=== PATIENT | female | born 1940 | race Caucasian/White ===

== ENCOUNTER 2017-06-28 08:00 | Emergency (ER) | payer MEDICARE ==
[2017-06-28] MEDS ORDERED: Ondansetron ODT 4 MG TAB ONE (08:13)
[2017-06-28 08:55] LABS: #Basophils 0.1 thou/uL (0.0-0.2); #Lymphocytes 0.5 thou/uL (1.20-3.40); #Monocytes 0.4 thou/uL (0.11-0.59); #Neutrophils 9.2 thou/uL (1.40-6.50); %Basophils 1.3 % (0.0-1.0); %Eosinophils 0.3 % (0.0-10.0); %Lymphocytes 4.4 % (21.0-51.0); %Monocytes 3.6 % (0.0-10.0); %Neutrophils 90.3 % (42.0-75.0); Hemoglobin 14.5 g/dL (12.0-16.0); Mean Corpuscular HGB CONC 32.1 g/dL (32.0-36.0); Mean Corpuscular Hemoglobin 28.2 pg (27.0-31.0); Mean Corpuscular Volume 87.8 fl (81.0-99.0); Mean Platelet Volume 6.8 fL (7.4-10.4); Platelet Count 156 thou/uL (130-400); RBC Distribution Width 12.8 % (11.5-14.5); Red Blood Cell (RBC) Count 5.13 mill/uL (4.20-5.40); White Blood Cell (WBC) Count 10.2 thou/uL (4.8-10.8)
--- NOTE | 2017-06-28 09:00 | RAD ---
2 VIEWS ABDOMEN AND SINGLE VIEW OF CHEST: Date: 06/28/17 COMPARISON: None. HISTORY: Nausea, vomiting, and diarrhea. FINDINGS: Supine and upright views of the abdomen and upright view of the chest shows a nonspecific, nonobstruc margarita bowel gas pattern. Air is seen to the level of the rectum. No free air or air fluid levels are se en on the upright examination. No suspicious calcifications are present. The heart is enlarged, but this may be exaggerated secondary to scoliotic curvature of the spine. Inc reased interstitial lung markings are present. There is no evidence of consolidation, mass, or pleura l effusion. IMPRESSION: Nonobstructed bowel gas pattern. POS: [facility]
[2017-06-28 09:02] LABS: ALT (SGPT) 37 U/L (8-55); AST (SGOT) 41 U/L (5-34); Albumin 4.1 g/dL (3.4-4.8); Alkaline Phosphatase 75 U/L (40-150); Anion Gap 18 mmol/L (10-20); BUN (Urea Nitrogen) 12 mg/dL (9.8-20.1); Bilirubin, Total 0.9 mg/dL (0.2-1.2); Calc. Creatinine Clearance 0 mL/min (70-130); Calcium 9.5 mg/dL (7.8-10.44); Carbon Dioxide 24 mmol/L (23-31); Chloride 104 mmol/L (98-107); Estimated GFR-MDRD 68; Globulin 2.8 g/dL (2.4-3.5); Glucose 134 mg/dL (83-110); Lipase 22 U/L (8-78); Potassium 3.7 mmol/L (3.5-5.1); Protein, Total 6.9 g/dL (6.0-8.3); Sodium 142 mmol/L (136-145)
[2017-06-28 09:04] LABS: Troponin I Less than 0.010 ng/mL (< 0.028)
[2017-06-28 10:08] LABS: Bilirubin Negative (Negative); Blood, Urine Moderate (Negative); Clarity Slightly Cloudy (Clear); Glucose, Urine (Dipstick) Negative (Negative); Leukocyte Large (Negative); Nitrite Negative (Negative); Protein, Urine (Dipstick) Trace mg/dL (Neg-Trace); Specific Gravity, Urine 1.015 (1.005-1.030); Urobilinogen 0.2 mg/dL (0.2-1.0); pH, Urine 8.5 (5.0-9.0)
[2017-06-28 10:17] LABS: Bacteria/HPF 3+ HPF (None Seen)
[2017-06-28] MEDS ORDERED: Sodium Chloride 0.9% 100 ML ONE (10:23)
[2017-06-28] MEDS ORDERED: cefTRIAXone\\ROCEPHIN 1 GM VIAL ONE (10:23)
[2017-06-28 12:23] LABS: Lactic Acid 2.2 mmol/L (0.5-2.2)
[2017-06-28] MEDS ORDERED: Acetaminophen 325 MG TAB ONE (12:30)
--- NOTE | 2017-07-27 18:26 | EKG ---
Test Reason : Blood Pressure : / mmHG Vent. Rate : 095 BPM Atrial Rate : 095 BPM P-R Int : 122 ms QRS Dur : 068 ms QT Int : 330 ms P-R-T Axes : 061 -01 034 degrees QTc Int : 414 ms Normal sinus rhythm Left atrial enlargement Nonspecific ST abnormality Abnormal ECG Confirmed by GISELLA SHABAZZ ([id number]), slot editor ANN-MARIE DESOUZA ([id number]) on 07/27/2017 6:26:33 PM Referred By: DR. SHABAZZ Confirmed By:GISELLA SHABAZZ
== END 2017-06-28 13:28 | disposition left against medical advice (07) ==
LOC: SCSER 08:00
DX: N39.0 Urinary tract infection, site not specified (principal); R19.7 Diarrhea, unspecified; I10 Essential (primary) hypertension; E78.5 Hyperlipidemia, unspecified; M81.0 Age-related osteoporosis without current pathological fracture; Z79.82 Long term (current) use of aspirin; Z79.899 Other long term (current) drug therapy; Z85.3 Personal history of malignant neoplasm of breast
CPT/HCPCS: 74022; 80053; 81003; 81015; 82553; 83605; 83690; 84484; 85025; 87086; 87804; 93005; 96361; 96365; J0696; J7050; Q0162

== ENCOUNTER 2017-08-02 13:23 | Outpatient (CLI) | payer MEDICARE | END 2017-08-02 13:24 | disposition home or self-care (01) | LOC: BICULT 13:23 | PROVIDERS: ATTEND Urology | DX: Z87.440 Personal history of urinary (tract) infections (principal) | CPT/HCPCS: 76770 ==

== ENCOUNTER 2022-07-11 11:57 | Day surgery (SDC) | payer MEDICARE ==
[2022-07-11 14:11] VITALS: BP 110/65; TEMP 97.6
== END 2022-07-11 14:05 | disposition home or self-care (01) ==
LOC: CT 11:57
PROVIDERS: ATTEND Internal Medicine
PROC: 079T3ZX Drainage of Bone Marrow, Percutaneous Approach, Diagnostic (ICD-10-PCS; principal; 2022-07-11)
DX: C90.00 Multiple myeloma not having achieved remission (principal); I10 Essential (primary) hypertension; E78.2 Mixed hyperlipidemia; M81.0 Age-related osteoporosis without current pathological fracture; Z85.3 Personal history of malignant neoplasm of breast; Z79.899 Other long term (current) drug therapy; Z88.2 Allergy status to sulfonamides; Z88.7 Allergy status to serum and vaccine; Z88.8 Allergy status to other drugs, medicaments and biological substances; Z91.013 Allergy to seafood
CPT/HCPCS: 20225; 77012; 85097; 88184; 88237; 88264; 88280; 88305; 88311; 88313; 88341; 88342

== ENCOUNTER 2022-09-27 14:58 | Day surgery (SDC) | payer MEDICARE | END 2022-09-27 15:34 | disposition home or self-care (01) | LOC: ONC/OP 14:58 | PROVIDERS: ATTEND Internal Medicine | DX: D46.9 Myelodysplastic syndrome, unspecified (principal); Z88.2 Allergy status to sulfonamides; Z88.7 Allergy status to serum and vaccine; Z88.8 Allergy status to other drugs, medicaments and biological substances; Z91.013 Allergy to seafood | CPT/HCPCS: 80053; 82248; 83615; 83735; 84100; 84550; 85379; 85384; 85610; 85730; 99211; G0463; J1642 ==

== ENCOUNTER 2022-12-24 01:44 | Observation (INO) | payer MEDICARE ==
[2022-12-24 03:40] LABS: Hemoglobin 10.8 g/dL (12.0-16.0); Mean Corpuscular HGB CONC 33.2 g/dL (32.0-36.0); Mean Corpuscular Volume 87.1 fl (78.0-98.0); Mean Platelet Volume 10.1 fL (7.4-10.4); Platelet Count 287 10x3/uL (130-400); RBC Distribution Width 17.9 % (11.5-14.5); Red Blood Cell (RBC) Count 3.73 mill/uL (4.20-5.40); White Blood Cell (WBC) Count 1.8 10x3/uL (4.8-10.8)
[2022-12-24 03:44] LABS: Delete Auto Diff?? YES; Manual Diff?? YES
[2022-12-24 04:01] LABS: ALT (SGPT) 20 U/L (8-55); AST (SGOT) 34 U/L (5-34); Albumin 3.2 g/dL (3.4-4.8); Alkaline Phosphatase 109 U/L (40-110); Anion Gap 15 mmol/L (10-20); BUN (Urea Nitrogen) 13 mg/dL (9.8-20.1); Bilirubin, Total 0.5 mg/dL (0.2-1.2); Calc. Creatinine Clearance 0 mL/min (70-130); Calcium 8.7 mg/dL (7.8-10.44); Carbon Dioxide 27 mmol/L (23-31); Chloride 99 mmol/L (98-107); Estimated GFR 72; Globulin 2.5 g/dL (2.4-3.5); Glucose 91 mg/dL (83-110); Magnesium 1.9 mg/dL (1.6-2.6); Potassium 3.2 mmol/L (3.5-5.1); Protein, Total 5.7 g/dL (5.8-8.1); Sodium 138 mmol/L (136-145)
[2022-12-24 04:24] LABS: Band 23 % (5-11); Giant Platelets 3.5 % (0-5); Large Platelets 26.3 % (0-5); Lymphocytes 19 % (21-51); Monocytes 12 % (0-10); Neutrophil 42 % (42-75); Platelet Adequacy Comment Platelets Normal; Polychromasia SLIGHT = 2-3 cells HPF (0-2); Total Cell Count 57
[2022-12-24 04:47] LABS: SARS-CoV-2 NAA Rapid Test Not Detected (NotDetected)
[2022-12-24 04:51] LABS: Bacteria/HPF None Seen HPF (None Seen); Bilirubin Negative (Negative); Blood, Urine Trace (Negative); CAUTI Indications for Culture Fever or rigors; Clarity Clear (Clear); Glucose, Urine (Dipstick) Normal (Negative); Ketone, Urine Negative (Negative); Leukocyte Negative Leu/uL (Negative); Nitrite Negative (Negative); Protein, Urine (Dipstick) 20 mg/dL (Neg-Trace); RBC/HPF 0-3 HPF (0-3); Specific Gravity, Urine 1.039 (1.002-1.036); Squamous Epithelial 0-3 HPF (0-3); Urobilinogen Normal mg/dL (Less than 2); WBC/HPF 0-3 HPF (0-3)
[2022-12-24 05:03] LABS: Urine Culture Reflex No No
[2022-12-24] MEDS ORDERED: Acetaminophen 325 MG TAB PO PRN (07:54)
[2022-12-24] MEDS ORDERED: Ondansetron PF 4 MG/2 ML Vial IVP PRN (07:54)
[2022-12-24] MEDS ORDERED: traMADol HCl 50 MG TAB PO PRN (08:53)
[2022-12-24] MEDS ORDERED: Mineral Oil ENEMA PR SCH (09:00)
[2022-12-24] MEDS ORDERED: POTASSIUM CHLORIDE 20 MEQ PO SCH (09:00)
[2022-12-24 09:11] VITALS: BMI 16.7
[2022-12-24] MEDS ORDERED: Potassium Bicarbonate/Cit Ac 20 MEQ TAB PO SCH (09:15)
[2022-12-24] MEDS: Sodium Chloride 0.9% 1,000 ML IV SCH ×2 (10:07→16:31)
[2022-12-24] MEDS: Potassium Chloride 20 MEQ TAB PO SCH (10:07)
[2022-12-24] MEDS: Apixaban 5 MG TAB PO SCH ×2 (10:07→21:48)
[2022-12-24] MEDS ORDERED: Iopamidol-370 76% 500 ML MDV (1 ML CHARGE) ONE (10:17)
[2022-12-24] MEDS ORDERED: Non-Formulary Item 1 EACH (Posaconazole 100 MG Tab) PO SCH (12:00)
[2022-12-24] MEDS ORDERED: valACYclovir 500 MG TAB PO SCH (18:00)
[2022-12-25] MEDS: Sodium Chloride 0.9% 1,000 ML IV SCH ×2 (00:11→08:58)
[2022-12-25 06:52] LABS: Hemoglobin 8.4 g/dL (12.0-16.0); Mean Corpuscular HGB CONC 31.8 g/dL (32.0-36.0); Mean Corpuscular Hemoglobin 29.2 pg (27.0-31.0); Mean Corpuscular Volume 91.7 fl (78.0-98.0); Mean Platelet Volume 10.5 fL (7.4-10.4); Platelet Count 237 10x3/uL (130-400); RBC Distribution Width 18.3 % (11.5-14.5); Red Blood Cell (RBC) Count 2.88 mill/uL (4.20-5.40)
[2022-12-25 07:20] LABS: Anion Gap 13 mmol/L (10-20); BUN (Urea Nitrogen) 8 mg/dL (9.8-20.1); Calc. Creatinine Clearance 47 mL/min (70-130); Calcium 7.5 mg/dL (7.8-10.44); Carbon Dioxide 22 mmol/L (23-31); Chloride 111 mmol/L (98-107); Estimated GFR 91; Glucose 84 mg/dL (83-110); Potassium 3.2 mmol/L (3.5-5.1); Sodium 143 mmol/L (136-145)
[2022-12-25 07:31] LABS: Delete Auto Diff?? YES; Manual Diff?? YES
[2022-12-25 08:08] LABS: Band 44 % (5-11); CellaVision Operator ID LAB.GE; Hypochromia SLIGHT = 6-15 cells HPF (0-5); Large Platelets 12.4 % (0-5); Lymphocytes 18 % (21-51); Metamyelocyte 1 % (0-0); Monocytes 2 % (0-10); Neutrophil 33 % (42-75); Platelet Adequacy Comment Platelets Normal; Polychromasia MODERATE = 3-4 cells HPF (0-2); Reactive Lymphocytes 2 % (0-10); Total Cell Count 105
[2022-12-25] MEDS: Apixaban 5 MG TAB PO SCH (09:43)
[2022-12-25] MEDS: Potassium Chloride 20 MEQ TAB PO SCH (09:43)
[2022-12-25] MEDS ORDERED: Lorazepam 0.5 MG TAB PO PRN (10:01)
[2022-12-25 15:07] VITALS: BP 144/78; TEMP 97.6
== END 2022-12-25 16:37 | disposition home or self-care (01) ==
LOC: ERS 01:44 → T4-B 07:45
PROVIDERS: ADMIT Internal Medicine; ATTEND Hospitalist
DX: R53.81 Other malaise (principal); E87.6 Hypokalemia; I10 Essential (primary) hypertension; D46.9 Myelodysplastic syndrome, unspecified; M41.9 Scoliosis, unspecified; K56.41 Fecal impaction; G93.41 Metabolic encephalopathy; Z79.01 Long term (current) use of anticoagulants; Z79.899 Other long term (current) drug therapy; Z88.2 Allergy status to sulfonamides; Z88.1 Allergy status to other antibiotic agents; Z91.013 Allergy to seafood; Z88.7 Allergy status to serum and vaccine; Z88.8 Allergy status to other drugs, medicaments and biological substances
CPT/HCPCS: 0240U; 71045; 74177; 80048; 80053; 81001; 83605; 83735; 84100; 85025 ×2; 93005; 96374; 97110; 97116; 97530; G0378 ×3; 51701; 96360; 96361; J2405; J7050; Q9967

== ENCOUNTER 2022-12-25 23:14 | Inpatient (IN) | payer MEDICARE ==
[2022-12-25] MEDS ORDERED: Acetaminophen 325 MG Suppository ONE (23:31)
[2022-12-26 00:06] LABS: #Monocytes 0.2 thou/uL (0.11-0.59); #Neutrophils 1.1 thou/uL (1.40-6.50); %Basophils 0.7 % (0.0-1.0); %Lymphocytes 16.8 % (21.0-51.0); %Monocytes 11.4 % (0.0-10.0); %Neutrophils 70.4 % (42.0-75.0); Hemoglobin 9.2 g/dL (12.0-16.0); Mean Corpuscular HGB CONC 32.3 g/dL (32.0-36.0); Mean Corpuscular Hemoglobin 28.5 pg (27.0-31.0); Mean Platelet Volume 10.3 fL (7.4-10.4); Platelet Count 219 10x3/uL (130-400); RBC Distribution Width 18.1 % (11.5-14.5); Red Blood Cell (RBC) Count 3.23 mill/uL (4.20-5.40); White Blood Cell (WBC) Count 1.5 10x3/uL (4.8-10.8)
[2022-12-26] MEDS ORDERED: Cefepime 2 GM VIAL ONE (00:12)
[2022-12-26] MEDS ORDERED: LORazepam 2 MG/ML SYR.(CARPUJECT) ONE (00:12)
[2022-12-26] MEDS ORDERED: Vancomycin 1 GM/200 ML (FROZEN) BAG ONE (00:12)
[2022-12-26 00:21] LABS: INR-International Normal Ratio 3.4; Prothrombin Time 35.8 sec (12.0-14.7)
[2022-12-26 00:53] LABS: Mean Corpuscular Volume 88.2 fl (78.0-98.0)
[2022-12-26 00:57] LABS: ALT (SGPT) 25 U/L (8-55); AST (SGOT) 39 U/L (5-34); Alkaline Phosphatase 134 U/L (40-110); Anion Gap 15 mmol/L (10-20); BUN (Urea Nitrogen) 10 mg/dL (9.8-20.1); Bilirubin, Total 0.7 mg/dL (0.2-1.2); Calc. Creatinine Clearance 0 mL/min (70-130); Calcium 8.4 mg/dL (7.8-10.44); Carbon Dioxide 21 mmol/L (23-31); Chloride 108 mmol/L (98-107); Estimated GFR 86; Globulin 2.5 g/dL (2.4-3.5); Glucose 104 mg/dL (83-110); Potassium 3.3 mmol/L (3.5-5.1); Protein, Total 5.5 g/dL (5.8-8.1); Sodium 141 mmol/L (136-145)
[2022-12-26 00:58] LABS: CRP (Inflammatory) 12.74 mg/dL (= or < 0.5); Lipase Less than 4 U/L (8-78); Magnesium 1.7 mg/dL (1.6-2.6)
[2022-12-26 00:58] LABS: SARS-CoV-2 NAA Rapid Test Not Detected (NotDetected)
[2022-12-26] MEDS ORDERED: Aspirin Chewable 81 MG TAB ONE (01:36)
[2022-12-26 01:40] LABS: CKMB 3.7 ng/mL (0-6.6)
[2022-12-26 03:16] LABS: Bacteria/HPF None Seen HPF (None Seen); Bilirubin Negative (Negative); Blood, Urine 1+ (Negative); CAUTI Indications for Culture Alt mental st,lethar; Clarity Turbid (Clear); Glucose, Urine (Dipstick) Normal (Negative); Ketone, Urine Negative (Negative); Leukocyte 75 Leu/uL (Negative); Nitrite Negative (Negative); Protein, Urine (Dipstick) 30 mg/dL (Neg-Trace); RBC/HPF 0-3 HPF (0-3); Specific Gravity, Urine 1.012 (1.002-1.036); Squamous Epithelial 0-3 HPF (0-3); Urobilinogen Normal mg/dL (Less than 2); pH, Urine 5.5 (5.0-9.0)
[2022-12-26] MEDS ORDERED: NOREPINEPHRINE 8 MG/250 ML-D5W 250 ML ONE (03:17)
[2022-12-26] MEDS ORDERED: Ondansetron PF 4 MG/2 ML Vial IVP PRN (03:26)
[2022-12-26] MEDS ORDERED: Magnesium 2 GM/50 ML(in water) 2 GM in Premix Bag 1 BAG IVPB SCH (03:30)
[2022-12-26] MEDS ORDERED: Potassium Bicarbonate/Cit Ac 20 MEQ TAB PO SCH (03:30)
[2022-12-26 03:31] LABS: Urine Culture Reflex Yes Yes
[2022-12-26] MEDS ORDERED: Magnesium 2 GM/50 ML BAG (IN WATER) ONE (03:43)
[2022-12-26 03:53] LABS: Troponin I 1.432 ng/mL (< 0.028)
[2022-12-26] MEDS ORDERED: Furosemide 20 MG/2 ML VIAL SLOW IVP SCH (05:45)
[2022-12-26 06:05] LABS: Hemoglobin 8.2 g/dL (12.0-16.0); Mean Corpuscular HGB CONC 31.8 g/dL (32.0-36.0); Mean Corpuscular Hemoglobin 28.8 pg (27.0-31.0); Mean Corpuscular Volume 90.5 fl (78.0-98.0); Mean Platelet Volume 11.2 fL (7.4-10.4); Platelet Count 175 10x3/uL (130-400); RBC Distribution Width 18.3 % (11.5-14.5); Red Blood Cell (RBC) Count 2.85 mill/uL (4.20-5.40); White Blood Cell (WBC) Count 5.9 10x3/uL (4.8-10.8)
[2022-12-26 06:33] LABS: Critical Call Chem Troponin I RESULT DECREASING; Troponin I 0.918 ng/mL (< 0.028)
[2022-12-26 06:41] LABS: ALT (SGPT) 22 U/L (8-55); AST (SGOT) 37 U/L (5-34); Albumin 2.7 g/dL (3.4-4.8); Alkaline Phosphatase 115 U/L (40-110); Anion Gap 13 mmol/L (10-20); BUN (Urea Nitrogen) 11 mg/dL (9.8-20.1); Bilirubin, Total 0.6 mg/dL (0.2-1.2); Calc. Creatinine Clearance 43 mL/min (70-130); Calcium 7.8 mg/dL (7.8-10.44); Carbon Dioxide 21 mmol/L (23-31); Chloride 109 mmol/L (98-107); Estimated GFR 87; Globulin 1.8 g/dL (2.4-3.5); Glucose 106 mg/dL (83-110); Magnesium 2.5 mg/dL (1.6-2.6); Potassium 3.4 mmol/L (3.5-5.1); Protein, Total 4.5 g/dL (5.8-8.1); Sodium 140 mmol/L (136-145)
[2022-12-26 06:42] LABS: Manual Diff?? YES
[2022-12-26 06:43] LABS: Delete Auto Diff?? YES
[2022-12-26 07:47] LABS: INR-International Normal Ratio 3.2; PTT 56.1 sec (22.9-36.1); Prothrombin Time 34.2 sec (12.0-14.7)
[2022-12-26] MEDS ORDERED: Famotidine 20 MG TAB PO SCH (09:00)
[2022-12-26 09:08] LABS: Band 51 % (5-11); CellaVision Operator ID LAB.GE; Giant Platelets 0.5 % (0-5); Large Platelets 6.3 % (0-5); Lymphocytes 7 % (21-51); Metamyelocyte 7 % (0-0); Monocytes 3 % (0-10); Neutrophil 29 % (42-75); Platelet Adequacy Comment Platelets Normal; Polychromasia MODERATE = 3-4 cells HPF (0-2); Reactive Lymphocytes 3 % (0-10); Smudge Cells 2.7 %; Total Cell Count 221; Toxic Granulation SLIGHT; Vacuoles SLIGHT
[2022-12-26] MEDS: Lactated Ringer's 1,000 ML IV SCH (12:09)
[2022-12-26] MEDS: POSACONAZOLE 100 MG PO SCH (12:11)
[2022-12-26] MEDS: Pantoprazole 40 MG VIAL IVP SCH (12:12)
[2022-12-26] MEDS: Cefepime 1 GM in Sodium Chloride 0.9% 100 ML IVPB SCH (14:46)
[2022-12-26] MEDS: valACYclovir 500 MG TAB PO SCH (19:37)
[2022-12-26] MEDS ORDERED: Apixaban 5 MG TAB PO SCH ×3 (21:00)
[2022-12-26] MEDS: Apixaban 2.5 MG TAB PO SCH (21:13)
[2022-12-27] MEDS: Cefepime 1 GM in Sodium Chloride 0.9% 100 ML IVPB SCH ×2 (01:43→14:20)
[2022-12-27] MEDS: Vancomycin HCl 750 MG in Sodium Chloride 0.9% 250 ML 250 ML IVPB SCH (02:38)
[2022-12-27 04:29] LABS: #Monocytes 0.5 thou/uL (0.11-0.59); #Neutrophils 5.7 thou/uL (1.40-6.50); %Basophils 0.5 % (0.0-1.0); %Eosinophils 0.3 % (0.0-10.0); %Lymphocytes 15.7 % (21.0-51.0); %Monocytes 6.2 % (0.0-10.0); Hemoglobin 9.3 g/dL (12.0-16.0); Mean Corpuscular HGB CONC 32.3 g/dL (32.0-36.0); Mean Corpuscular Hemoglobin 28.8 pg (27.0-31.0); Mean Corpuscular Volume 89.2 fl (78.0-98.0); Mean Platelet Volume 11.3 fL (7.4-10.4); Platelet Count 178 10x3/uL (130-400); RBC Distribution Width 18.1 % (11.5-14.5); Red Blood Cell (RBC) Count 3.23 mill/uL (4.20-5.40); White Blood Cell (WBC) Count 7.5 10x3/uL (4.8-10.8)
[2022-12-27 04:36] LABS: Manual Diff?? YES
[2022-12-27 04:44] LABS: INR-International Normal Ratio 2.6; PTT 54.7 sec (22.9-36.1); Prothrombin Time 29.2 sec (12.0-14.7)
[2022-12-27 04:50] LABS: ALT (SGPT) 24 U/L (8-55); AST (SGOT) 38 U/L (5-34); Albumin 2.9 g/dL (3.4-4.8); Alkaline Phosphatase 134 U/L (40-110); Anion Gap 13 mmol/L (10-20); BUN (Urea Nitrogen) 11 mg/dL (9.8-20.1); Bilirubin, Total 0.7 mg/dL (0.2-1.2); Calc. Creatinine Clearance 44 mL/min (70-130); Calcium 8.2 mg/dL (7.8-10.44); Carbon Dioxide 25 mmol/L (23-31); Chloride 107 mmol/L (98-107); Estimated GFR 87; Globulin 2.4 g/dL (2.4-3.5); Glucose 118 mg/dL (83-110); Magnesium 1.9 mg/dL (1.6-2.6); Potassium 2.7 mmol/L (3.5-5.1); Protein, Total 5.3 g/dL (5.8-8.1); Sodium 142 mmol/L (136-145)
[2022-12-27 05:10] LABS: Band 24 % (5-11); Eosinophils 1 % (0-10); Large Platelets 1.9 % (0-5); Lymphocytes 12 % (21-51); Metamyelocyte 1 % (0-0); Monocytes 4 % (0-10); Neutrophil 58 % (42-75); Platelet Adequacy Comment Platelets Normal; Total Cell Count 103
[2022-12-27] MEDS: Lactated Ringer's 1,000 ML IV SCH (07:42)
[2022-12-27] MEDS: Apixaban 2.5 MG TAB PO SCH ×3 (08:31→20:22)
[2022-12-27] MEDS: Pantoprazole 40 MG VIAL IVP SCH (08:31)
[2022-12-27] MEDS: Famotidine 20 MG TAB PO SCH ×2 (08:31→08:43)
[2022-12-27] MEDS: POSACONAZOLE 100 MG PO SCH ×2 (08:31→08:44)
[2022-12-27] MEDS ORDERED: Non-Formulary Item 1 EACH (Posaconazole 100 MG Tab) PO SCH (12:00)
[2022-12-27] MEDS: valACYclovir 500 MG TAB PO SCH (18:03)
[2022-12-27] MEDS: Acetaminophen 325 MG TAB PO PRN (20:22)
[2022-12-28] MEDS: Cefepime 1 GM in Sodium Chloride 0.9% 100 ML IVPB SCH ×2 (01:41→15:28)
[2022-12-28 02:03] LABS: Vancomycin, Trough 6.6 ug/mL
[2022-12-28] MEDS: Vancomycin HCl 750 MG in Sodium Chloride 0.9% 250 ML 250 ML IVPB SCH ×3 (02:31→17:13)
[2022-12-28] MEDS: Lactated Ringer's 1,000 ML IV SCH (02:37)
[2022-12-28 04:44] LABS: Hemoglobin 8.4 g/dL (12.0-16.0); Mean Corpuscular HGB CONC 32.8 g/dL (32.0-36.0); Mean Corpuscular Hemoglobin 28.7 pg (27.0-31.0); Mean Corpuscular Volume 87.4 fl (78.0-98.0); Mean Platelet Volume 12.1 fL (7.4-10.4); Platelet Count 122 10x3/uL (130-400); RBC Distribution Width 18.5 % (11.5-14.5); Red Blood Cell (RBC) Count 2.93 mill/uL (4.20-5.40); White Blood Cell (WBC) Count 3.8 10x3/uL (4.8-10.8)
[2022-12-28 04:46] LABS: Delete Auto Diff?? YES; Manual Diff?? YES
[2022-12-28 04:57] LABS: INR-International Normal Ratio 1.9; Prothrombin Time 22.7 sec (12.0-14.7)
[2022-12-28 04:59] LABS: PTT 45.3 sec (22.9-36.1)
[2022-12-28 05:07] LABS: ALT (SGPT) 19 U/L (8-55); AST (SGOT) 20 U/L (5-34); Albumin 2.3 g/dL (3.4-4.8); Alkaline Phosphatase 109 U/L (40-110); Anion Gap 10 mmol/L (10-20); BUN (Urea Nitrogen) 10 mg/dL (9.8-20.1); Bilirubin, Total 0.5 mg/dL (0.2-1.2); Calc. Creatinine Clearance 49 mL/min (70-130); Calcium 7.8 mg/dL (7.8-10.44); Carbon Dioxide 27 mmol/L (23-31); Chloride 108 mmol/L (98-107); Estimated GFR 88; Globulin 2.1 g/dL (2.4-3.5); Glucose 111 mg/dL (83-110); Magnesium 1.9 mg/dL (1.6-2.6); Protein, Total 4.4 g/dL (5.8-8.1); Sodium 142 mmol/L (136-145)
[2022-12-28 05:14] VITALS: BMI 22.8
[2022-12-28 05:23] LABS: Anisocytosis SLIGHT = 6-15 cells HPF (0-5); Band 12 % (5-11); CellaVision Operator ID lab.abc; Eosinophils 2 % (0-10); Large Platelets 7.8 % (0-5); Lymphocytes 22 % (21-51); Monocytes 10 % (0-10); Neutrophil 55 % (42-75); Platelet Adequacy Comment Platelets Decreased; Polychromasia SLIGHT = 2-3 cells HPF (0-2); Smudge Cells 25.5 %; Total Cell Count 102
[2022-12-28 07:11] LABS: Potassium 2.6 mmol/L (3.5-5.1)
[2022-12-28] MEDS ORDERED: Magnesium 2 GM/50 ML(in water) 2 GM in Premix Bag 1 BAG IVPB SCH (07:30)
[2022-12-28] MEDS: Pantoprazole 40 MG VIAL IVP SCH (09:08)
[2022-12-28] MEDS: Apixaban 2.5 MG TAB PO SCH ×2 (09:09→21:38)
[2022-12-28] MEDS: Famotidine 20 MG TAB PO SCH (09:09)
[2022-12-28] MEDS: POSACONAZOLE 100 MG PO SCH (09:09)
[2022-12-28] MEDS: Potassium Bicarbonate/Cit Ac 20 MEQ TAB PO SCH ×2 (09:09→12:52)
[2022-12-28] MEDS ORDERED: Guaifenesin DM 100-10/5 ML UDCUP PO PRN (11:26)
[2022-12-28] MEDS ORDERED: Vancomycin HCl 500 MG in Sodium Chloride 0.9% 100 ML IVPB SCH (14:00)
[2022-12-28] MEDS: Benzonatate 100 MG CAP PO SCH ×2 (15:28→21:40)
[2022-12-28] MEDS: valACYclovir 500 MG TAB PO SCH (17:09)
[2022-12-28] MEDS: Melatonin 3 MG TAB PO PRN (21:42)
[2022-12-29] MEDS: Cefepime 1 GM in Sodium Chloride 0.9% 100 ML IVPB SCH ×2 (02:11→13:13)
[2022-12-29] MEDS ORDERED: Nitroglycerin 0.4 MG TAB (25 Tab Bottle) ONE (03:43)
[2022-12-29] MEDS: Vancomycin HCl 750 MG in Sodium Chloride 0.9% 250 ML 250 ML IVPB SCH ×2 (03:53→16:09)
[2022-12-29 04:31] LABS: Hemoglobin 8.9 g/dL (12.0-16.0); Mean Corpuscular HGB CONC 33.1 g/dL (32.0-36.0); Mean Corpuscular Hemoglobin 28.6 pg (27.0-31.0); Mean Corpuscular Volume 86.5 fl (78.0-98.0); Mean Platelet Volume 11.6 fL (7.4-10.4); Platelet Count 112 10x3/uL (130-400); RBC Distribution Width 18.6 % (11.5-14.5); Red Blood Cell (RBC) Count 3.11 mill/uL (4.20-5.40); White Blood Cell (WBC) Count 3.6 10x3/uL (4.8-10.8)
[2022-12-29 04:49] LABS: Anion Gap 10 mmol/L (10-20); BUN (Urea Nitrogen) 8 mg/dL (9.8-20.1); CRP (Inflammatory) 6.72 mg/dL (= or < 0.5); Calc. Creatinine Clearance 56 mL/min (70-130); Carbon Dioxide 29 mmol/L (23-31); Chloride 109 mmol/L (98-107); Estimated GFR 90; Glucose 102 mg/dL (83-110); Potassium 2.9 mmol/L (3.5-5.1); Sodium 145 mmol/L (136-145)
[2022-12-29 05:37] LABS: Delete Auto Diff?? YES; Manual Diff?? YES
[2022-12-29 06:29] LABS: Anisocytosis SLIGHT = 6-15 cells HPF (0-5); Band 14 % (5-11); CellaVision Operator ID LAB.JMM; Eosinophils 2 % (0-10); Hypochromia SLIGHT = 6-15 cells HPF (0-5); Large Platelets 8.8 % (0-5); Lymphocytes 21 % (21-51); Monocytes 9 % (0-10); Myelocyte 1 % (0-0); Neutrophil 54 % (42-75); Platelet Adequacy Comment Platelets Decreased; Polychromasia SLIGHT = 2-3 cells HPF (0-2); Smudge Cells 13.7 %; Total Cell Count 102
[2022-12-29] MEDS ORDERED: Electrolyte Replacement Protocol 1 EACH FS SCH (07:45)
[2022-12-29] MEDS ORDERED: Potassium Chloride 20 MEQ TAB PO SCH (07:45)
[2022-12-29] MEDS ORDERED: Potassium Chloride 40 MEQ in Premix Bag 1 BAG IVPB SCH (08:00)
[2022-12-29] MEDS: POSACONAZOLE 100 MG PO SCH (08:46)
[2022-12-29] MEDS: Benzonatate 100 MG CAP PO SCH ×3 (08:47→20:43)
[2022-12-29] MEDS: Pantoprazole 40 MG VIAL IVP SCH (08:47)
[2022-12-29] MEDS: Famotidine 20 MG TAB PO SCH (08:48)
[2022-12-29] MEDS: Apixaban 2.5 MG TAB PO SCH ×2 (08:48→20:43)
[2022-12-29] MEDS ORDERED: D5W-AA 4.25% with LYTES 1,000 ML IV SCH (11:00)
[2022-12-29] MEDS ORDERED: Sterile Water 10 ML VIAL IVP SCH (12:15)
[2022-12-29] MEDS ORDERED: Activase 2 MG VIAL CATH SCH (12:15)
[2022-12-29 15:10] LABS: Potassium 4.9 mmol/L (3.5-5.1)
[2022-12-29] MEDS: valACYclovir 500 MG TAB PO SCH (17:25)
[2022-12-29] MEDS ORDERED: Furosemide 40 MG/4 ML VIAL SLOW IVP SCH (18:30)
[2022-12-29] MEDS: Mirtazapine 15 MG TAB PO SCH (20:43)
[2022-12-30] MEDS: Cefepime 1 GM in Sodium Chloride 0.9% 100 ML IVPB SCH ×2 (02:28→14:22)
[2022-12-30] MEDS: Vancomycin HCl 750 MG in Sodium Chloride 0.9% 250 ML 250 ML IVPB SCH ×2 (03:37→15:23)
[2022-12-30 06:52] LABS: Anion Gap 14 mmol/L (10-20); BUN (Urea Nitrogen) 9 mg/dL (9.8-20.1); Calc. Creatinine Clearance 58 mL/min (70-130); Calcium 8.2 mg/dL (7.8-10.44); Carbon Dioxide 30 mmol/L (23-31); Chloride 103 mmol/L (98-107); Estimated GFR 91; Glucose 98 mg/dL (83-110); Magnesium 1.8 mg/dL (1.6-2.6); Sodium 144 mmol/L (136-145)
[2022-12-30 07:06] LABS: Potassium 2.6 mmol/L (3.5-5.1)
[2022-12-30] MEDS ORDERED: Potassium Chloride 20 MEQ TAB PO SCH ×2 (08:00→21:45)
[2022-12-30] MEDS ORDERED: Magnesium 2 GM/50 ML(in water) 2 GM in Premix Bag 1 BAG IVPB SCH (08:00)
[2022-12-30] MEDS: Benzonatate 100 MG CAP PO SCH ×3 (09:47→20:16)
[2022-12-30] MEDS: Pantoprazole 40 MG VIAL IVP SCH (09:47)
[2022-12-30] MEDS: Apixaban 2.5 MG TAB PO SCH ×2 (09:47→20:16)
[2022-12-30] MEDS: Famotidine 20 MG TAB PO SCH ×2 (09:47→10:13)
[2022-12-30] MEDS: POSACONAZOLE 100 MG PO SCH (09:48)
[2022-12-30] MEDS ORDERED: Furosemide 40 MG/4 ML VIAL SLOW IVP SCH (10:45)
[2022-12-30] MEDS ORDERED: Ipratropium/Albuterol 3 ML NEB NEB SCH (10:45)
[2022-12-30] MEDS: Albumin 25% 25 GM/100 ML BOT IVPB SCH ×3 (11:56→22:43)
[2022-12-30] MEDS: Potassium Chloride 40 MEQ in Premix Bag 1 BAG IVPB SCH ×2 (11:56→15:23)
[2022-12-30] MEDS: Acetylcysteine 20% 200 MG/ML 30 ML VIAL INH SCH ×2 (13:45→19:38)
[2022-12-30] MEDS: Ipratropium/Albuterol 3 ML NEB NEB SCH ×2 (13:45→19:20)
[2022-12-30] MEDS: valACYclovir 500 MG TAB PO SCH (17:59)
[2022-12-30] MEDS: Mirtazapine 15 MG TAB PO SCH (20:15)
[2022-12-30] MEDS: Acetaminophen 325 MG TAB PO PRN (22:39)
[2022-12-31] MEDS: Acetylcysteine 20% 200 MG/ML 30 ML VIAL INH SCH ×2 (00:45→07:27)
[2022-12-31] MEDS: Ipratropium/Albuterol 3 ML NEB NEB SCH ×4 (00:45→19:28)
[2022-12-31] MEDS: Cefepime 1 GM in Sodium Chloride 0.9% 100 ML IVPB SCH ×2 (01:04→16:13)
[2022-12-31] MEDS: Vancomycin HCl 750 MG in Sodium Chloride 0.9% 250 ML 250 ML IVPB SCH ×3 (03:56→23:57)
[2022-12-31 04:03] LABS: Hemoglobin 6.9 g/dL (12.0-16.0); Mean Corpuscular HGB CONC 31.8 g/dL (32.0-36.0); Mean Corpuscular Volume 88.2 fl (78.0-98.0); Mean Platelet Volume 12.6 fL (7.4-10.4); Platelet Count 105 10x3/uL (130-400); RBC Distribution Width 18.2 % (11.5-14.5); Red Blood Cell (RBC) Count 2.46 mill/uL (4.20-5.40)
[2022-12-31 04:28] LABS: ALT (SGPT) 12 U/L (8-55); AST (SGOT) 15 U/L (5-34); Albumin 3.4 g/dL (3.4-4.8); Alkaline Phosphatase 86 U/L (40-110); Anion Gap 14 mmol/L (10-20); BUN (Urea Nitrogen) 11 mg/dL (9.8-20.1); Bilirubin, Total 0.5 mg/dL (0.2-1.2); Calc. Creatinine Clearance 55 mL/min (70-130); Calcium 8.8 mg/dL (7.8-10.44); Carbon Dioxide 31 mmol/L (23-31); Chloride 104 mmol/L (98-107); Estimated GFR 90; Globulin 1.7 g/dL (2.4-3.5); Glucose 92 mg/dL (83-110); Magnesium 2.1 mg/dL (1.6-2.6); Potassium 3.3 mmol/L (3.5-5.1); Protein, Total 5.1 g/dL (5.8-8.1); Sodium 146 mmol/L (136-145)
[2022-12-31 04:52] LABS: Delete Auto Diff?? YES; Manual Diff?? YES
[2022-12-31] MEDS: Albumin 25% 25 GM/100 ML BOT IVPB SCH (05:08)
[2022-12-31 06:40] LABS: Hemoglobin 6.9 g/dL (12.0-16.0); Mean Corpuscular HGB CONC 32.1 g/dL (32.0-36.0); Mean Corpuscular Volume 87.4 fl (78.0-98.0); Mean Platelet Volume 12.1 fL (7.4-10.4); Platelet Count 107 10x3/uL (130-400); RBC Distribution Width 18.2 % (11.5-14.5); Red Blood Cell (RBC) Count 2.46 mill/uL (4.20-5.40); White Blood Cell (WBC) Count 3.6 10x3/uL (4.8-10.8)
[2022-12-31 06:57] LABS: Delete Auto Diff?? YES; Manual Diff?? YES
[2022-12-31 07:19] LABS: Band 11 % (5-11); CellaVision Operator ID LAB.GE; Eosinophils 3 % (0-10); Hypochromia SLIGHT = 6-15 cells HPF (0-5); Large Platelets 8.6 % (0-5); Lymphocytes 28 % (21-51); Monocytes 8 % (0-10); Neutrophil 48 % (42-75); Platelet Adequacy Comment Platelets Decreased; Polychromasia SLIGHT = 2-3 cells HPF (0-2); Reactive Lymphocytes 1 % (0-10); Smudge Cells 9.5 %; Total Cell Count 105
[2022-12-31 07:25] LABS: Band 18 % (5-11); CellaVision Operator ID LAB.GE; Eosinophils 3 % (0-10); Large Platelets 6.9 % (0-5); Lymphocytes 27 % (21-51); Monocytes 12 % (0-10); Myelocyte 2 % (0-0); Neutrophil 37 % (42-75); Platelet Adequacy Comment Platelets Decreased; Polychromasia SLIGHT = 2-3 cells HPF (0-2); Reactive Lymphocytes 2 % (0-10); Total Cell Count 102
[2022-12-31] MEDS ORDERED: Potassium Chloride 40 MEQ in Premix Bag 1 BAG IVPB SCH ×2 (08:00→15:45)
[2022-12-31] MEDS: Benzonatate 100 MG CAP PO SCH ×3 (11:06→21:47)
[2022-12-31] MEDS: Famotidine 20 MG TAB PO SCH (11:06)
[2022-12-31] MEDS: Furosemide 40 MG/4 ML VIAL SLOW IVP SCH (11:07)
[2022-12-31] MEDS: Pantoprazole 40 MG VIAL IVP SCH (11:07)
[2022-12-31] MEDS: POSACONAZOLE 100 MG PO SCH (11:13)
[2022-12-31] MEDS ORDERED: Furosemide 20 MG/2 ML VIAL SLOW IVP SCH (15:00)
[2022-12-31] MEDS ORDERED: Apixaban 2.5 MG TAB PO SCH (21:00)
[2022-12-31] MEDS: valACYclovir 500 MG TAB PO SCH (21:47)
[2022-12-31] MEDS: Mirtazapine 15 MG TAB PO SCH (21:47)
[2022-12-31 21:53] LABS: Potassium 3.6 mmol/L (3.5-5.1)
[2022-12-31 22:16] LABS: Vancomycin, Random 11.9 ug/mL (See Comment)
[2023-01-01] MEDS: Ipratropium/Albuterol 3 ML NEB NEB SCH ×4 (00:21→19:12)
[2023-01-01] MEDS ORDERED: Nystatin 100,000 Units/mL UDCUP SSW SCH (00:30)
[2023-01-01] MEDS: Cefepime 1 GM in Sodium Chloride 0.9% 100 ML IVPB SCH ×2 (02:15→13:30)
[2023-01-01 05:21] LABS: Hemoglobin 9.4 g/dL (12.0-16.0); Mean Corpuscular HGB CONC 33.1 g/dL (32.0-36.0); Mean Corpuscular Hemoglobin 28.7 pg (27.0-31.0); Mean Corpuscular Volume 86.9 fl (78.0-98.0); Mean Platelet Volume 12.7 fL (7.4-10.4); Platelet Count 159 10x3/uL (130-400); RBC Distribution Width 17.1 % (11.5-14.5); Red Blood Cell (RBC) Count 3.27 mill/uL (4.20-5.40); White Blood Cell (WBC) Count 5.2 10x3/uL (4.8-10.8)
[2023-01-01 05:27] LABS: Delete Auto Diff?? YES; Manual Diff?? YES
[2023-01-01 05:52] LABS: ALT (SGPT) 12 U/L (8-55); AST (SGOT) 20 U/L (5-34); Albumin 3.5 g/dL (3.4-4.8); Alkaline Phosphatase 82 U/L (40-110); Anion Gap 12 mmol/L (10-20); BUN (Urea Nitrogen) 7 mg/dL (9.8-20.1); Bilirubin, Total 0.8 mg/dL (0.2-1.2); Calc. Creatinine Clearance 59 mL/min (70-130); Calcium 9.2 mg/dL (7.8-10.44); Carbon Dioxide 36 mmol/L (23-31); Chloride 104 mmol/L (98-107); Estimated GFR 92; Globulin 1.9 g/dL (2.4-3.5); Glucose 103 mg/dL (83-110); Protein, Total 5.4 g/dL (5.8-8.1); Sodium 149 mmol/L (136-145)
[2023-01-01 05:56] LABS: Potassium 2.6 mmol/L (3.5-5.1)
[2023-01-01 05:58] LABS: Band 11 % (5-11); CellaVision Operator ID LAB.GE; Eosinophils 7 % (0-10); Large Platelets 0.8 % (0-5); Lymphocytes 6 % (21-51); Monocytes 5 % (0-10); Neutrophil 53 % (42-75); Plasma Cells 0.8 % (0-0); Platelet Adequacy Comment Platelets Normal; Polychromasia SLIGHT = 2-3 cells HPF (0-2); Reactive Lymphocytes 17 % (0-10); Smudge Cells 0.8 %; Total Cell Count 131
[2023-01-01] MEDS: Potassium Chloride 20 MEQ in Premix Bag 1 BAG IVPB SCH ×6 (07:23→17:38)
[2023-01-01] MEDS ORDERED: Potassium Chloride 20 MEQ TAB PO SCH (08:00)
[2023-01-01] MEDS: Famotidine 20 MG TAB PO SCH (08:07)
[2023-01-01] MEDS: Furosemide 40 MG/4 ML VIAL SLOW IVP SCH (08:07)
[2023-01-01] MEDS: Benzonatate 100 MG CAP PO SCH ×4 (08:07→22:14)
[2023-01-01] MEDS: Pantoprazole 40 MG VIAL IVP SCH (08:08)
[2023-01-01] MEDS: POSACONAZOLE 100 MG PO SCH (08:08)
[2023-01-01] MEDS: Nystatin 100,000 Units/mL UDCUP SSW SCH ×2 (08:09→08:11)
[2023-01-01] MEDS ORDERED: hydrALAZINE 20 MG/ML VIAL SLOW IVP PRN (08:26)
[2023-01-01] MEDS: Vancomycin HCl 750 MG in Sodium Chloride 0.9% 250 ML 250 ML IVPB SCH ×2 (11:55→22:48)
[2023-01-01] MEDS: Nystatin 500,000 UNITS/5 ML UDCUP SSW SCH ×4 (13:30→22:14)
[2023-01-01 14:35] LABS: Potassium 2.9 mmol/L (3.5-5.1)
[2023-01-01] MEDS: valACYclovir 500 MG TAB PO SCH (16:51)
[2023-01-01] MEDS ORDERED: Potassium Chloride 40 MEQ in Premix Bag 1 BAG IVPB SCH (21:00)
[2023-01-01] MEDS: Mirtazapine 15 MG TAB PO SCH ×2 (22:14)
[2023-01-01 23:05] LABS: Potassium 3.9 mmol/L (3.5-5.1)
[2023-01-02] MEDS: Ipratropium/Albuterol 3 ML NEB NEB SCH ×4 (00:28→19:23)
[2023-01-02] MEDS: LevoFLOXacin 750 MG TAB PO SCH (05:55)
[2023-01-02] MEDS: Famotidine 20 MG TAB PO SCH ×2 (08:56→08:57)
[2023-01-02] MEDS: Pantoprazole 40 MG VIAL IVP SCH (08:56)
[2023-01-02] MEDS: Nystatin 500,000 UNITS/5 ML UDCUP SSW SCH ×4 (08:57→20:55)
[2023-01-02] MEDS: Benzonatate 100 MG CAP PO SCH ×3 (08:57→20:55)
[2023-01-02 11:45] LABS: Hemoglobin 10.2 g/dL (12.0-16.0); Mean Corpuscular HGB CONC 32.4 g/dL (32.0-36.0); Mean Corpuscular Hemoglobin 29.1 pg (27.0-31.0); Mean Platelet Volume 12.3 fL (7.4-10.4); Platelet Count 190 10x3/uL (130-400); RBC Distribution Width 17.5 % (11.5-14.5); White Blood Cell (WBC) Count 6.7 10x3/uL (4.8-10.8)
[2023-01-02 11:55] LABS: Delete Auto Diff?? YES; Manual Diff?? YES
[2023-01-02] MEDS: Vancomycin HCl 750 MG in Sodium Chloride 0.9% 250 ML 250 ML IVPB SCH (12:04)
[2023-01-02 12:11] LABS: Anion Gap 13 mmol/L (10-20); BUN (Urea Nitrogen) 9 mg/dL (9.8-20.1); Calc. Creatinine Clearance 58 mL/min (70-130); Calcium 9.4 mg/dL (7.8-10.44); Carbon Dioxide 34 mmol/L (23-31); Chloride 101 mmol/L (98-107); Estimated GFR 91; Glucose 110 mg/dL (83-110); Potassium 3.4 mmol/L (3.5-5.1); Sodium 145 mmol/L (136-145)
[2023-01-02 12:15] LABS: Vancomycin, Trough 11.1 ug/mL
[2023-01-02 12:21] LABS: Band 18 % (5-11); CellaVision Operator ID LAB.GE; Eosinophils 2 % (0-10); Large Platelets 6.9 % (0-5); Lymphocytes 11 % (21-51); Monocytes 5 % (0-10); Myelocyte 1 % (0-0); Neutrophil 59 % (42-75); Platelet Adequacy Comment Platelets Normal; Polychromasia SLIGHT = 2-3 cells HPF (0-2); Reactive Lymphocytes 4 % (0-10); Smudge Cells 2.9 %; Total Cell Count 102
[2023-01-02] MEDS: POSACONAZOLE 100 MG PO SCH (12:45)
[2023-01-02] MEDS ORDERED: Potassium Chloride 20 MEQ TAB PO SCH (14:00)
[2023-01-02] MEDS ORDERED: Potassium Chloride 20 MEQ in Premix Bag 1 BAG IVPB SCH (14:00)
[2023-01-02] MEDS: valACYclovir 500 MG TAB PO SCH (17:04)
[2023-01-02] MEDS: Mirtazapine 15 MG TAB PO SCH (20:55)
[2023-01-03] MEDS: Ipratropium/Albuterol 3 ML NEB NEB SCH ×4 (00:17→18:34)
[2023-01-03] MEDS ORDERED: Nitroglycerin 0.4 MG TAB (25 Tab Bottle) ONE (05:03)
[2023-01-03] MEDS: LevoFLOXacin 750 MG TAB PO SCH (05:13)
[2023-01-03] MEDS: Nystatin 500,000 UNITS/5 ML UDCUP SSW SCH ×4 (10:07→20:29)
[2023-01-03] MEDS: Pantoprazole 40 MG VIAL IVP SCH (10:08)
[2023-01-03] MEDS: Benzonatate 100 MG CAP PO SCH ×3 (10:08→20:31)
[2023-01-03] MEDS: POSACONAZOLE 100 MG PO SCH (10:09)
[2023-01-03 13:19] LABS: #Eosinphils 0.1 thou/uL (0.0-0.7); #Monocytes 1.1 thou/uL (0.11-0.59); %Basophils 0.5 % (0.0-1.0); %Eosinophils 0.9 % (0.0-10.0); %Lymphocytes 16.2 % (21.0-51.0); %Monocytes 14.3 % (0.0-10.0); %Neutrophils 67.6 % (42.0-75.0); Hemoglobin 10.7 g/dL (12.0-16.0); Mean Corpuscular HGB CONC 31.8 g/dL (32.0-36.0); Mean Corpuscular Hemoglobin 28.9 pg (27.0-31.0); Mean Corpuscular Volume 90.8 fl (78.0-98.0); Mean Platelet Volume 12.4 fL (7.4-10.4); Platelet Count 266 10x3/uL (130-400); RBC Distribution Width 17.8 % (11.5-14.5); White Blood Cell (WBC) Count 7.4 10x3/uL (4.8-10.8)
[2023-01-03 13:44] LABS: Anion Gap 15 mmol/L (10-20); BUN (Urea Nitrogen) 15 mg/dL (9.8-20.1); Calc. Creatinine Clearance 48 mL/min (70-130); Calcium 9.9 mg/dL (7.8-10.44); Carbon Dioxide 31 mmol/L (23-31); Chloride 102 mmol/L (98-107); Estimated GFR 87; Glucose 127 mg/dL (83-110); Potassium 3.8 mmol/L (3.5-5.1); Sodium 144 mmol/L (136-145)
[2023-01-03] MEDS ORDERED: Activase 2 MG VIAL CATH SCH ×2 (16:30→16:45)
[2023-01-03] MEDS ORDERED: Sterile Water 10 ML VIAL IVP SCH (16:45)
[2023-01-03] MEDS: valACYclovir 500 MG TAB PO SCH ×2 (18:35→20:02)
[2023-01-03] MEDS: Mirtazapine 15 MG TAB PO SCH (20:29)
[2023-01-04] MEDS: Ipratropium/Albuterol 3 ML NEB NEB SCH ×3 (00:20→13:53)
[2023-01-04] MEDS: Acetaminophen 325 MG TAB PO PRN (05:19)
[2023-01-04] MEDS: LevoFLOXacin 750 MG TAB PO SCH (05:19)
[2023-01-04] MEDS: Pantoprazole 40 MG VIAL IVP SCH (10:35)
[2023-01-04] MEDS: Famotidine 20 MG TAB PO SCH (10:35)
[2023-01-04] MEDS: Nystatin 500,000 UNITS/5 ML UDCUP SSW SCH ×4 (10:35→21:00)
[2023-01-04] MEDS: POSACONAZOLE 100 MG PO SCH (10:36)
[2023-01-04] MEDS: Benzonatate 100 MG CAP PO SCH ×3 (10:36→20:27)
[2023-01-04] MEDS ORDERED: Polyethylene Glycol 3350 17 GM Packet PO SCH (12:45)
[2023-01-04] MEDS ORDERED: Senokot S 8.6-50 MG TAB PO SCH (13:15)
[2023-01-04] MEDS ORDERED: Ipratropium/Albuterol 3 ML NEB NEB PRN (14:08)
[2023-01-04] MEDS: valACYclovir 500 MG TAB PO SCH (18:33)
[2023-01-04] MEDS: Senokot S 8.6-50 MG TAB PO SCH (20:27)
[2023-01-04] MEDS: Mirtazapine 15 MG TAB PO SCH (21:00)
[2023-01-05 04:08] LABS: #Eosinphils 0.1 thou/uL (0.0-0.7); #Monocytes 0.9 thou/uL (0.11-0.59); #Neutrophils 4.2 thou/uL (1.40-6.50); %Basophils 0.3 % (0.0-1.0); %Eosinophils 1.7 % (0.0-10.0); %Lymphocytes 18.2 % (21.0-51.0); %Monocytes 13.6 % (0.0-10.0); %Neutrophils 65.6 % (42.0-75.0); Hemoglobin 8.6 g/dL (12.0-16.0); Mean Corpuscular HGB CONC 31.9 g/dL (32.0-36.0); Mean Corpuscular Hemoglobin 28.6 pg (27.0-31.0); Mean Corpuscular Volume 89.7 fl (78.0-98.0); Mean Platelet Volume 12.5 fL (7.4-10.4); Platelet Count 275 10x3/uL (130-400); Red Blood Cell (RBC) Count 3.01 mill/uL (4.20-5.40); White Blood Cell (WBC) Count 6.4 10x3/uL (4.8-10.8)
[2023-01-05 04:31] LABS: Anion Gap 14 mmol/L (10-20); BUN (Urea Nitrogen) 18 mg/dL (9.8-20.1); Calc. Creatinine Clearance 49 mL/min (70-130); Calcium 9.4 mg/dL (7.8-10.44); Carbon Dioxide 36 mmol/L (23-31); Chloride 101 mmol/L (98-107); Estimated GFR 88; Glucose 98 mg/dL (83-110); Potassium 3.2 mmol/L (3.5-5.1); Sodium 148 mmol/L (136-145)
[2023-01-05] MEDS ORDERED: Potassium Chloride 20 MEQ TAB PO SCH (05:15)
[2023-01-05] MEDS: LevoFLOXacin 750 MG TAB PO SCH (05:34)
[2023-01-05] MEDS: POSACONAZOLE 100 MG PO SCH (09:40)
[2023-01-05] MEDS: Nystatin 500,000 UNITS/5 ML UDCUP SSW SCH ×4 (10:19→20:48)
[2023-01-05] MEDS: Famotidine 20 MG TAB PO SCH (10:19)
[2023-01-05] MEDS: Benzonatate 100 MG CAP PO SCH ×3 (10:20→20:47)
[2023-01-05] MEDS: Senokot S 8.6-50 MG TAB PO SCH ×2 (10:20→20:42)
[2023-01-05] MEDS: valACYclovir 500 MG TAB PO SCH (17:41)
[2023-01-05] MEDS: Mirtazapine 15 MG TAB PO SCH (20:48)
[2023-01-06] MEDS: LevoFLOXacin 750 MG TAB PO SCH (05:34)
[2023-01-06 05:51] LABS: Hemoglobin 9.6 g/dL (12.0-16.0); Platelet Count 311 10x3/uL (130-400)
[2023-01-06] MEDS: Nystatin 500,000 UNITS/5 ML UDCUP SSW SCH ×4 (09:13→20:22)
[2023-01-06] MEDS: Senokot S 8.6-50 MG TAB PO SCH ×2 (09:13→20:23)
[2023-01-06] MEDS: Benzonatate 100 MG CAP PO SCH ×3 (09:13→20:23)
[2023-01-06] MEDS: Famotidine 20 MG TAB PO SCH (09:13)
[2023-01-06] MEDS: POSACONAZOLE 100 MG PO SCH (10:43)
[2023-01-06] MEDS ORDERED: Megestrol Acetate 40 MG TAB PO SCH (17:00)
[2023-01-06] MEDS: valACYclovir 500 MG TAB PO SCH (17:26)
[2023-01-06] MEDS: Mirtazapine 15 MG TAB PO SCH (20:23)
[2023-01-06] MEDS: Melatonin 3 MG TAB PO PRN (20:23)
[2023-01-07] MEDS: LevoFLOXacin 750 MG TAB PO SCH (05:52)
[2023-01-07] MEDS: Benzonatate 100 MG CAP PO SCH (08:35)
[2023-01-07] MEDS: Senokot S 8.6-50 MG TAB PO SCH (08:40)
[2023-01-07] MEDS: Famotidine 20 MG TAB PO SCH (08:40)
[2023-01-07] MEDS: Nystatin 500,000 UNITS/5 ML UDCUP SSW SCH (08:41)
[2023-01-07] MEDS: POSACONAZOLE 100 MG PO SCH (08:47)
[2023-01-07] MEDS ORDERED: Megestrol Acetate 40 MG TAB PO SCH (09:00)
[2023-01-07 09:07] VITALS: BP 138/62; TEMP 98
== END 2023-01-07 12:25 | DRG 871 ==
LOC: ERS 23:14 → ERHOLD 12-26 02:02 → CCU 12-26 04:46 → SJJU 12-26 15:48 → SURG A 12-26 16:05 → SJJU 12-26 16:06
PROVIDERS: ADMIT Internal Medicine; ATTEND Family Medicine
PROC: 3E03329 Introduction of Other Anti-infective into Peripheral Vein, Percutaneous Approach (ICD-10-PCS; principal; 2022-12-26)
PROC: 3E033XZ Introduction of Vasopressor into Peripheral Vein, Percutaneous Approach (ICD-10-PCS; 2022-12-26)
PROC: 009U3ZX Drainage of Spinal Canal, Percutaneous Approach, Diagnostic (ICD-10-PCS; 2022-12-26)
PROC: 30233N1 Transfusion of Nonautologous Red Blood Cells into Peripheral Vein, Percutaneous Approach (ICD-10-PCS; 2022-12-31)
DX: A41.9 Sepsis, unspecified organism (principal); G93.41 Metabolic encephalopathy; I50.33 Acute on chronic diastolic (congestive) heart failure; J96.01 Acute respiratory failure with hypoxia; R65.21 Severe sepsis with septic shock; J18.9 Pneumonia, unspecified organism; I21.A1 Myocardial infarction type 2; N39.0 Urinary tract infection, site not specified; D61.818 Other pancytopenia; E87.0 Hyperosmolality and hypernatremia; E44.0 Moderate protein-calorie malnutrition; E87.20 Acidosis, unspecified; D46.9 Myelodysplastic syndrome, unspecified; I11.0 Hypertensive heart disease with heart failure; Z66 Do not resuscitate; D64.9 Anemia, unspecified; K59.00 Constipation, unspecified; Z20.822 Contact with and (suspected) exposure to COVID-19; E78.00 Pure hypercholesterolemia, unspecified; M41.9 Scoliosis, unspecified; R53.81 Other malaise; E87.6 Hypokalemia; R31.0 Gross hematuria; R63.0 Anorexia; R77.8 Other specified abnormalities of plasma proteins; M81.0 Age-related osteoporosis without current pathological fracture; Z79.01 Long term (current) use of anticoagulants; Z85.3 Personal history of malignant neoplasm of breast; Z92.21 Personal history of antineoplastic chemotherapy; Z86.718 Personal history of other venous thrombosis and embolism; Z90.11 Acquired absence of right breast and nipple; Z88.8 Allergy status to other drugs, medicaments and biological substances; Z91.013 Allergy to seafood; Z88.2 Allergy status to sulfonamides; Z88.7 Allergy status to serum and vaccine; Z79.899 Other long term (current) drug therapy; Z90.89 Acquired absence of other organs; Z90.49 Acquired absence of other specified parts of digestive tract; Z80.0 Family history of malignant neoplasm of digestive organs; Z68.22 Body mass index [BMI] 22.0-22.9, adult
CPT/HCPCS: 36415; 36430; 51701; 62270; 70450; 71045; 74177; 80048; 80053; 80202; 81001; 82553; 83605; 83615; 83690; 83735; 83880; 84100; 84145; 84443; 84484; 85014; 85018; 85025; 85049; 85610; 85730; 86140; 86850; 86870; 86900; 86901; 86922; 87040; 87086; 93005; 93010; 94640; 96360; 96361; 96365; 96367; 96374; 96375; C9113; G0378; J0132; J0360; J0692; J1940; J2060; J2405; J2997; J3370; J3370-JW; J3475; J3480; J3490; J7050; J7120; J7620; P9016; P9047; Q9967; S0179